=== PATIENT | female | born 1995 | race Two or more races ===

== ENCOUNTER 2017-12-06 09:51 | Emergency (ER) | payer OTHER ==
[2017-12-06] MEDS ORDERED: Albuterol/Ipratropium 3.0-0.5 MG/3 ML Neb Soln NEB ONE (10:08)
--- NOTE | 2017-12-06 10:14 | EDM.PDOC ---
ED HPI GENERAL MEDICAL PROBLEM - General Chief Complaint: Respiratory Problem Stated Complaint: COUGH AND FEVER Time Seen by Provider: 12/06/17 10:02 Source of Information: Reports: Patient History Limitations: Reports: No Limitations - History of Present Illness INITIAL COMMENTS - FREE TEXT/NARRATIVE: HISTORY AND PHYSICAL: History of present illness: Patient is a 22-year-old female. The [employer] head of mobile was used for our interview/physical exam. Patient presents to the emergency room today with complaints of body aches, fever, cough since last night. She states she has taken some [id number] medication which has not seemed to help. She denies any previous health problems such as asthma or problems. Reports when she coughs she has pain in her right posterior chest wall, and does make her nauseated when she gets into a coughing spell. She denies any recent injury or trauma. Has not received the [id number] influenza vaccine. No recent travel. Denies any chest pain or shortness of breath. Denies any dysuria, abdominal pain , nausea, vomiting or diarrhea/constipation. Denies any chance of as she uses the Depo-Provera injection every 3 months. Review of systems: As per history of present illness and below otherwise all systems reviewed and negative. Past medical history: As per history of present illness and as reviewed below otherwise noncontributory. Surgical history: As per history of present illness and as reviewed below otherwise noncontributory. Social history: No reported history of drug or alcohol abuse. Family history: As per history of present illness and as reviewed below otherwise noncontributory. Physical exam: Gen.: Well-developed and well-nourished 22-year-old female. Alert and oriented. Nontoxic appearing and in no acute distress. HEENT: Atraumatic, normocephalic, pupils reactive, negative for conjunctival pallor or scleral icterus, mucous membranes moist, throat clear, neck supple, nontender, trachea midline. Lungs: Clear to auscultation, breath sounds equal bilaterally, chest nontender. Dry cough noted. Heart: S1S2, regular rate and rhythm without overt murmurs Abdomen: Soft, nondistended, nontender. Negative for masses or hepatosplenomegaly. Negative for costovertebral tenderness. Pelvis: Stable nontender. Genitourinary: Deferred. Rectal: Deferred. Extremities: Atraumatic, negative for cords or calf pain. Neurovascular unremarkable. Neuro: Awake, alert, oriented. Cranial nerves II through XII unremarkable. Cerebellum unremarkable. Motor and sensory unremarkable throughout. Exam nonfocal. Patient reports that she feels somewhat better after receiving her DuoNeb treatment. Negative influenza. Her white count is 19.4 and chest x-ray shows a right middle lobe pneumonia. I did use the [employer] services to discuss her x-ray and lab findings. We'll give her her first dose of Levaquin here. A prescription for Levaquin 750 mg once daily 10 days, Medrol Dosepak take as directed, Phenergan with codeine elixir, no refill. These medications were reviewed and discussed. Instructed her to follow up with her primary care provider in the next 2-3 days. She voices understanding and is agreeable to plan of care. She denies any questions at this time. Diagnostics: CBC, CMP, Chest x-ray, influenza screening Therapeutics: DuoNeb Impression: Pneumonia Plan: 1. Please take your medications as directed. Do not use the Phenergan with codeine while driving or needing to be functioning with work or childcare. He may use [id number] cough medication during the day. 2. Please follow-up with your primary caregiver in the next 2-3 days. Return to the ED as needed and as we discussed. Definitive disposition and diagnosis as appropriate pending reevaluation and review of above. Duration: Day(s): Location: Reports: Chest - Related Data Allergies Allergy/AdvReac Type Severity Reaction Status Date / Time No Known Allergies Allergy Verified 12/06/17 10:03 Home Meds: Home Meds . [No Known Home Meds] 12/06/17 [History] ED ROS GENERAL - Review of Systems Review Of Systems: ROS reveals no pertinent complaints other than HPI. ED EXAM, GENERAL - Physical Exam Exam: See Below (See dictation) Course - Vital Signs Last Recorded V/S: Last Vital Signs Temp 97.1 F 12/06/17 10:04 Pulse 108 H 12/06/17 10:04 Resp 18 12/06/17 10:04 BP 95/59 L 12/06/17 10:04 Pulse Ox 96 12/06/17 10:04 - Orders/Labs/Meds Orders: Active Orders 24 hr Category Date Time Status RT Aerosol Therapy [RC] ASDIRECTED Care 12/06/17 10:08 Active Labs: Laboratory Tests 12/06/17 12/06/17 Range/Units 10:34 10:34 WBC 19.49 H (4.0-11.0) K/uL RBC 4.44 (4.30-5.90) M/uL Hgb 13.8 (12.0-16.0) g/dL Hct 38.8 (36.0-46.0) % MCV 87.4 (80.0-98.0) fL MCH 31.1 (27.0-32.0) pg MCHC 35.6 (31.0-37.0) g/dL RDW Std Deviation 42.1 (28.0-62.0) fl RDW Coeff of Lina 13 (11.0-15.0) % Plt Count 191 (150-400) K/uL MPV 10.40 (7.40-12.00) fL Neut % (Auto) 88.6 H (48.0-80.0) % Lymph % (Auto) 5.2 L (16.0-40.0) % [place]ell % (Auto) 6.0 (0.0-15.0) % Eos % (Auto) 0.1 (0.0-7.0) % Baso % (Auto) 0.1 (0.0-1.5) % Neut # (Auto) 17.3 H (1.4-5.7) K/uL Lymph # (Auto) 1.0 (0.6-2.4) K/uL Cabell # (Auto) 1.2 H (0.0-0.8) K/uL Eos # (Auto) 0.0 (0.0-0.7) K/uL Baso # (Auto) 0.0 (0.0-0.1) K/uL Nucleated RBC % 0.0 /100WBC Nucleated RBCs # 0 K/uL Sodium 137 (136-146) mmol/L Potassium 3.7 (3.5-5.1) mmol/L Chloride 108 (98-110) mmol/L Carbon Dioxide 19 L (21-31) mmol/L BUN 9 (6.0-23.0) mg/dL Creatinine 0.7 (0.6-1.5) mg/dL Est Cr Clr Drug Dosing TNP Estimated GFR (MDRD) > 60.0 ml/min Glucose 112 H (60-110) mg/dL Calcium 9.3 (8.8-10.8) mg/dL Total Bilirubin 1.0 (0.1-1.5) mg/dL AST 18 (5-40) IU/L ALT 20 (8-54) IU/L Alkaline Phosphatase 67 (40-150) Total Protein 7.2 (6.0-8.0) g/dL Albumin 4.2 (3.5-5.0) g/dL Globulin 3.0 (2.0-3.5) g/dL Albumin/Globulin Ratio 1.4 (1.3-2.8) Meds: Medications Discontinued Medications Generic Name Dose Route Start Last Admin Trade Name Freq PRN Reason Stop Dose Admin Albuterol/Ipratropium 3 ml 12/06/17 10:08 12/06/17 10:29 Duoneb 3.0-0.5 Mg/3 Ml NEB 12/06/17 10:09 3 ml ONETIME ONE Administration Levofloxacin 750 mg 12/06/17 11:11 Levaquin PO 12/06/17 11:12 ONETIME ONE Departure - Departure Time of Disposition: 11:18 Disposition: Home, Self-Care 01 Clinical Impression: Pneumonia Qualifiers: Pneumonia type: due to unspecified organism Laterality: right Lung location: middle lobe of lung Qualified Code(s): J18.1 - Lobar pneumonia, unspecified organism - Discharge Information Referrals: PCP,Unknown [Primary Care Provider] - Forms: ED Department Discharge Additional Instructions: My general discharge The following information is given to patients seen in the emergency department who are being discharged to home. This information is to outline your options for follow-up care. We provide all patients seen in our emergency department with a follow-up referral. The need for follow-up, as well as the timing and circumstances, are variable depending upon the specifics of your emergency department visit. If you don't have a primary care physician on staff, we will provide you with a referral. We always advise you to contact your personal physician following an emergency department visit to inform them of the circumstance of the visit and for follow-up with them and/or the need for any referrals to a consulting specialist. The emergency department will also refer you to a specialist when appropriate. This referral assures that you have the opportunity for follow-up care with a specialist. All of these measure are taken in an effort to provide you with optimal care, which includes your follow-up. Under all circumstances we always encourage you to contact your private physician who remains a resource for coordinating your care. When calling for follow-up care, please make the office aware that this follow-up is from your recent emergency room visit. If for any reason you are refused follow-up, please contact the [facility] Emergency Department at and asked to speak to the emergency department charge nurse. [facility] [address] [place] [id number] 1. Please take your medications as directed. Make sure you take all of your antibiotics (10 days). Do not use the Phenergan with codeine while driving or needing to be functioning with work or childcare. You may use [id number] cough medication during the day. 2. Please follow-up with your primary caregiver in the next 2-3 days. Return to the ED as needed and as we discussed. - My Orders Last 24 Hours: My Active Orders 12/06/17 10:08 RT Aerosol Therapy [RC] ASDIRECTED - Assessment/Plan Last 24 Hours: My Active Orders 12/06/17 10:08 RT Aerosol Therapy [RC] ASDIRECTED
--- NOTE | 2017-12-06 10:31 | CR ---
EXAMINATION: Two-view chest (PA and Lateral views). HISTORY: Shortness of breath. FINDINGS: The trachea is midline. The cardiomediastinal silhouette is within normal limits. Mild consolidation noted within the right middle lobe. No pleural effusion or pneumothorax. Tiny calcified granuloma wit hin the left upper lobe. Osseous structures appear unremarkable. IMPRESSION: Right middle lobe pneumonia.
[2017-12-06 11:04] LABS: CHLORIDE,CL 108 mmol/L (98-110); SODIUM,NA 137 mmol/L (136-146)
[2017-12-06] MEDS ORDERED: Levofloxacin 250 MG Tab PO ONE (11:11)
== END 2017-12-06 11:40 | disposition home or self-care (01) ==
LOC: MW.ED 09:51
DX: J18.9 Pneumonia, unspecified organism (principal)
CPT/HCPCS: 36415; 71046; 80053; 85025; 87804; 94640; 99284; A9270

== ENCOUNTER 2018-04-03 17:11 | Emergency (ER) | payer OTHER ==
--- NOTE | 2018-04-03 17:39 | EDM.PDOC ---
ED HPI GENERAL MEDICAL PROBLEM - General Chief Complaint: Respiratory Problem Stated Complaint: SORE THROAT/COUGH/CHEST PAIN Time Seen by Provider: 04/03/18 17:13 Source of Information: Reports: Patient History Limitations: Reports: No Limitations - History of Present Illness INITIAL COMMENTS - FREE TEXT/NARRATIVE: Presents reporting a three-day history of cough and cold symptoms along with sore throat ear pressure and her chest hurts when she coughs. lungs Pain Score (Numeric/FACES): 6 - Related Data Allergies Allergy/AdvReac Type Severity Reaction Status Date / Time No Known Allergies Allergy Verified 04/03/18 17:27 Home Meds: Home Meds predniSONE [Prednisone] 2 tab PO DAILY #10 tablet 04/03/18 [Rx] Past Medical History - Past Health History Medical/Surgical History: Denies Medical/Surgical History - Infectious Disease History Infectious Disease History: Reports: Chicken Pox Social & Family History - Family History Family Medical History: Noncontributory - Caffeine Use Caffeine Use: Reports: Coffee ED ROS GENERAL - Review of Systems Review Of Systems: ROS reveals no pertinent complaints other than HPI. ED EXAM, GENERAL - Physical Exam Exam: See Below Exam Limited By: Language Barrier (Limited Chinese) General Appearance: Alert, No Apparent Distress Ears: Normal External Exam, Normal TMs Nose: Normal Inspection Throat/Mouth: Normal Inspection Head: Normocephalic Neck: Normal Inspection. No: Lymphadenopathy (L), Lymphadenopathy (R) Respiratory/Chest: No Respiratory Distress, Lungs Clear, Normal Breath Sounds Cardiovascular: Regular Rate, Rhythm, No Murmur GI/Abdominal: Soft Neurological: Alert, Oriented, Normal Cognition Psychiatric: Normal Affect, Normal Mood Skin Exam: Warm, Dry, Intact, Normal Color, No Rash Lymphatic: No Adenopathy Course - Vital Signs Last Recorded V/S: Last Vital Signs Temp 36.3 C 04/03/18 17:27 Pulse 79 04/03/18 17:27 Resp 20 04/03/18 17:27 BP 117/58 L 04/03/18 17:27 Pulse Ox 97 04/03/18 17:27 Departure - Departure Time of Disposition: 17:38 Disposition: Home, Self-Care 01 Clinical Impression: Bronchitis - Discharge Information Referrals: PCP,None [Primary Care Provider] - [facility] [Outside] [facility] [Outside] Additional Instructions: 1. Take your prednisone 2 tabs once daily. 2. Cough syrup 2 teaspoons every [address] after taking. Best before bed. 3. Stop smoking. 4. Drink plenty of fluids and rest. 5. Follow up in primary care.
== END 2018-04-03 18:01 | disposition home or self-care (01) ==
LOC: MW.ED 17:11
DX: J40 Bronchitis, not specified as acute or chronic (principal)
CPT/HCPCS: 99282; 99283

== ENCOUNTER 2018-08-05 10:18 | Emergency (ER) | payer OTHER ==
--- NOTE | 2018-08-05 10:25 | EDM.PDOC ---
ED HPI GENERAL MEDICAL PROBLEM - General Stated Complaint: COUGH, CONGESTION Time Seen by Provider: 08/05/18 10:24 Source of Information: Reports: Patient History Limitations: Reports: No Limitations - History of Present Illness INITIAL COMMENTS - FREE TEXT/NARRATIVE: HISTORY AND PHYSICAL: History of present illness: Patient is a 23-year-old female who presents to the emergency room with her with concerns of sinus pressure/pain, sore throat and cough. She states she has had these symptoms for the last 4 days and has not improved with over- the-counter products. He has had subjective fevers. Denies any chest pain, shortness of breath, abdominal pain, nausea, vomiting, dysuria, diarrhea or constipation. Review of systems: As per history of present illness and below otherwise all systems reviewed and negative. Past medical history: As per history of present illness and as reviewed below otherwise noncontributory. Surgical history: As per history of present illness and as reviewed below otherwise noncontributory. Social history: No reported history of drug or alcohol abuse. Family history: As per history of present illness and as reviewed below otherwise noncontributory. Physical exam: General: Developed and well-nourished 23-year-old female. Alert and oriented. Nontoxic appearing and in no acute distress. HEENT: Atraumatic, normocephalic, pupils equal and reactive bilaterally, negative for conjunctival pallor or scleral icterus, mucous membranes moist, throat clear, neck supple, nontender, trachea midline. Frontal sinus pain with palpation bilatearlly. TM normal bilaterally. No drooling or trismus noted. No meningeal signs Lungs: Slightly diminsihed breath sounds to bilateral bases, breath sounds equal bilaterally, chest nontender. Dry non-productive cough. Breathes easy and even Heart: S1S2, regular rate and rhythm without overt murmur Abdomen: Soft, nondistended, nontender. Negative for masses or hepatosplenomegaly. Negative for costovertebral tenderness. Pelvis: Stable nontender. Genitourinary: Deferred. Rectal: Deferred. Skin: Intact, warm, dry. No lesions or rashes noted. Extremities: Atraumatic, negative for cords or calf pain. Neurovascular unremarkable. Neuro: Awake, alert, oriented. Cranial nerves II through XII unremarkable. Cerebellum unremarkable. Motor and sensory unremarkable throughout. Exam nonfocal. Notes: We will give the patient Augmentin for 10 days. Patient states that she uses current pharmacy that is not open on Monday. She is requesting that we give her her first dose while here in the emergency room. I did try to explain the albuterol inhaler which it appears she does need education from our RT. She denies any further questions or concerns at this time. Diagnostics: None Therapeutics: Augmentin, Albuterol Prescription: Augmentin Albuterol Inhaler Impression: Sinusitis Cough Plan: 1. Please take the medication as directed. 2. You may use the inhaler 1-2 puffs every 4-6 hours as needed 3. Tylenol as needed for pain. 4. Please follow-up with your primary care provider in the next 1-2 days. Return to the ED as needed and as discussed. Definitive disposition and diagnosis as appropriate pending reevaluation and review of above. Chest Pain Score (Numeric/FACES): 9 - Related Data Allergies Allergy/AdvReac Type Severity Reaction Status Date / Time No Known Allergies Allergy Verified 07/22/18 13:14 Home Meds: Home Meds . [No Known Home Meds] 07/22/18 [History] Past Medical History - Past Health History Medical/Surgical History: Denies Medical/Surgical History - Infectious Disease History Infectious Disease History: Reports: None Social & Family History - Family History Family Medical History: Noncontributory - Caffeine Use Caffeine Use: Reports: Coffee ED ROS GENERAL - Review of Systems Review Of Systems: ROS reveals no pertinent complaints other than HPI. ED EXAM, GENERAL - Physical Exam Exam: See Below (See dictation) Course - Vital Signs Last Recorded V/S: Last Vital Signs Temp 98.1 F 08/05/18 10:27 Pulse 97 08/05/18 10:27 Resp 18 08/05/18 10:27 BP 112/66 08/05/18 10:27 Pulse Ox 97 08/05/18 10:27 - Orders/Labs/Meds Orders: Active Orders 24 hr Category Date Time Status RT Post Treatment Assessment [RC] Click to Edit Care 08/05/18 10:40 Ordered RT Pre-Treatment Assessment [RC] Click to Edit Care 08/05/18 10:40 Ordered Meds: Medications Discontinued Medications Generic Name Dose Route Start Last Admin Trade Name Freq PRN Reason Stop Dose Admin Albuterol 1 gm 08/05/18 10:39 Proventil Hfa INH 08/05/18 10:40 ONETIME ONE Albuterol 1 gm 08/05/18 11:00 08/05/18 10:57 Ventolin Hfa INH 08/05/18 11:01 2 inhaler ONETIME ONE Administration Amoxicillin/Clavulanate Potassium 2 tab 08/05/18 10:39 08/05/18 10:56 Augmentin 875 Mg/125 Mg PO 08/05/18 10:40 2 tab ONETIME ONE Administration Departure - Departure Time of Disposition: 10:44 Disposition: Home, Self-Care 01 Clinical Impression: Cough Sinusitis Qualifiers: Sinusitis location: frontal Chronicity: acute Recurrence: non-recurrent Qualified Code(s): J01.10 - Acute frontal sinusitis, unspecified - Discharge Information Instructions: Sinusitis, Adult, N[place]-be-Cecd, Cough, Adult Referrals: PCP,None [Primary Care Provider] - Forms: ED Department Discharge Additional Instructions: The following information is given to patients seen in the emergency department who are being discharged to home. This information is to outline your options for follow-up care. We provide all patients seen in our emergency department with a follow-up referral. The need for follow-up, as well as the timing and circumstances, are variable depending upon the specifics of your emergency department visit. If you don't have a primary care physician on staff, we will provide you with a referral. We always advise you to contact your personal physician following an emergency department visit to inform them of the circumstance of the visit and for follow-up with them and/or the need for any referrals to a consulting specialist. The emergency department will also refer you to a specialist when appropriate. This referral assures that you have the opportunity for follow-up care with a specialist. All of these measure are taken in an effort to provide you with optimal care, which includes your follow-up. Under all circumstances we always encourage you to contact your private physician who remains a resource for coordinating your care. When calling for follow-up care, please make the office aware that this follow-up is from your recent emergency room visit. If for any reason you are refused follow-up, please contact the [facility] Emergency Department at and asked to speak to the emergency department charge nurse. [facility] [address] [place] [id number] 1. Please take the medication as directed. 2. You may use the inhaler 1-2 puffs every 4-6 hours as needed 3. Tylenol as needed for pain. 4. Please follow-up with your primary care provider in the next 1-2 days. Return to the ED as needed and as discussed. - My Orders Last 24 Hours: My Active Orders 08/05/18 10:40 RT Post Treatment Assessment [RC] Click to Edit RT Pre-Treatment Assessment [RC] Click to Edit - Assessment/Plan Last 24 Hours: My Active Orders 08/05/18 10:40 RT Post Treatment Assessment [RC] Click to Edit RT Pre-Treatment Assessment [RC] Click to Edit
[2018-08-05] MEDS ORDERED: Albuterol 6.7 GM Inhaler INH ONE (10:39)
[2018-08-05] MEDS ORDERED: Amoxicillin/Clavulanate K 875-125 MG Tab PO ONE (10:39)
[2018-08-05] MEDS ORDERED: Albuterol 8 GM Inhaler INH ONE (11:00)
== END 2018-08-05 11:00 | disposition home or self-care (01) ==
LOC: MW.ED 10:18
DX: J01.10 Acute frontal sinusitis, unspecified (principal); R05 Cough
CPT/HCPCS: 99283; A9270

== ENCOUNTER 2019-02-21 05:21 | Inpatient (IN) | payer OTHER ==
[~2019-02-21 05:21] MED LIST: Citric Acid/Sodium Citrate Solution 30 ML Cup PO ONE; Oxytocin/0.9 % Sodium Chloride 30 UNIT/500 ML BAG IV SCH; Sodium Chloride 0.9% 10 ML SDV IV PRN; Sodium Chloride 0.9% 10 ML Syringe FLUSH PRN; Sodium Chloride 0.9% 2.5 ML Syringe FLUSH PRN
[2019-02-21] MEDS: Lactated Ringers 1,000 ML IV SCH ×2 (06:10→07:26)
[2019-02-21] MEDS ORDERED: Morphine PF 10 MG/10 ML SDV ONE (07:18)
[2019-02-21] MEDS ORDERED: ePHEDrine 50 MG/ML SDV ONE (07:18)
[2019-02-21] MEDS ORDERED: Phenylephrine 1% 10 MG/ML SDV ONE (07:18)
[2019-02-21] MEDS ORDERED: Ondansetron 4 MG/2 ML SDV ONE (07:18)
[2019-02-21] MEDS ORDERED: Oxytocin 10 Units/1 ML SDV ONE (07:18)
[2019-02-21] MEDS ORDERED: Ketorolac 30 MG/ML SDV ONE (07:19)
[2019-02-21] MEDS ORDERED: Oxytocin/0.9 % Sodium Chloride 30 UNIT/500 ML BAG ONE (07:28)
--- NOTE | 2019-02-21 07:28 | PCM.PREANE ---
Preanesthetic Assessment - Anesthesia/Transfusion/Family Hx Anesthesia History: Prior Anesthesia Without Reaction Family History of Anesthesia Reaction: No Transfusion History: No Prior Transfusion(s) - Review of Systems General: No Symptoms Pulmonary: No Symptoms Cardiovascular: No Symptoms Gastrointestinal: No Symptoms Neurological: No Symptoms Other: Reports: None - Physical Assessment NPO Status Date: 02/20/19 Height: 5 ft 5 in Weight: 84.368 kg ASA Class: 2 Mental Status: Alert & Oriented x3 Airway Class: Mallampati = 2 Dentition: Reports: Normal Dentition ROM/Head Extension: Full Lungs: Clear to Auscultation, Normal Respiratory Effort Cardiovascular: Regular Rate, Regular Rhythm - Lab Values: Laboratory Last Values WBC 11.41 K/uL (4.0-11.0) H 02/21/19 06:22 RBC 3.85 M/uL (4.30-5.90) L 02/21/19 06:22 Hgb 10.7 g/dL (12.0-16.0) L 02/21/19 06:22 Hct 32.3 % (36.0-46.0) L 02/21/19 06:22 MCV 83.9 fL (80.0-98.0) 02/21/19 06:22 MCH 27.8 pg (27.0-32.0) 02/21/19 06:22 MCHC 33.1 g/dL (31.0-37.0) 02/21/19 06:22 RDW Std Deviation 43.6 fl (28.0-62.0) 02/21/19 06:22 RDW Coeff of Lina 14 % (11.0-15.0) 02/21/19 06:22 Plt Count 238 K/uL (150-400) 02/21/19 06:22 MPV 10.40 fL (7.40-12.00) 02/21/19 06:22 Nucleated RBC % 0.0 /100WBC 02/21/19 06:22 Nucleated RBCs # 0 K/uL 02/21/19 06:22 - Allergies Allergies/Adverse Reactions: Allergies Allergy/AdvReac Type Severity Reaction Status Date / Time No Known Allergies Allergy Verified 02/18/19 12:53 - Blood Blood Available: No - Anesthesia Plan Pre-Op Medication Ordered: None - Acknowledgements Anesthesia Type Planned: Spinal Pt an Appropriate Candidate for the Planned Anesthesia: Yes Alternatives and Risks of Anesthesia Discussed w Pt/Guardian: Yes Pt/Guardian Understands and Agrees with Anesthesia Plan: Yes PreAnesthesia Questionnaire - Past Health History Medical/Surgical History: Denies Medical/Surgical History Cardiovascular History: Reports: None Respiratory History: Reports: None Gastrointestinal History: Reports: GERD Genitourinary History: Reports: None 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: Musculoskeletal History: Reports: None Neurological History: Reports: None Psychiatric History: Reports: Depression Other Psychiatric History: post depression Endocrine/Metabolic History: Reports: None Hematologic History: Reports: None Immunologic History: Reports: None Oncologic (Cancer) History: Reports: None Dermatologic History: Reports: None - Infectious Disease History Infectious Disease History: Reports: None - Past Surgical History Head Surgeries/Procedures: Reports: None Cardiovascular Surgical History: Reports: None Respiratory Surgical History: Reports: None GI Surgical History: Reports: None Female Surgical History: Reports: Section Endocrine Surgical History: Reports: None Neurological Surgical History: Reports: None Musculoskeletal Surgical History: Reports: None Oncologic Surgical History: Reports: None Dermatological Surgical History: Reports: None - SUBSTANCE USE Smoking Status *Q: Never Smoker Second Hand Smoke Exposure: No Recreational Drug Use History: No - HOME MEDS Home Medications: Home Meds Famotidine [Acid Customer Advisor] 1 tab PO BID 02/18/19 [History] PNV95/Ferrous Fumarate/FA [ Vitamin Tablet] 1 tab PO DAILY 02/18/19 [ History] - CURRENT (IN HOUSE) MEDS Current Meds: Current Medications Lactated Ringer's (Ringers, Lactated) 1,000 mls @ 500 mls/hr IV BOLUS DEAN Last Admin: 02/21/19 07:26 Dose: 500 mls/hr Oxytocin/Sodium Chloride (Oxytocin 30 Unit/500 Ml-Ns) 30 unit in 500 mls @ 250 mls/hr IV TITRATE DEAN Sodium Chloride (Saline Flush) 10 ml FLUSH ASDIRECTED PRN PRN Reason: Keep Vein Open Sodium Chloride (Saline Flush) 2.5 ml FLUSH ASDIRECTED PRN PRN Reason: Keep Vein Open Sodium Chloride (Normal Saline) 10 ml IV ASDIRECTED PRN PRN Reason: IV Use Discontinued Medications Citric Acid/Sodium Citrate (Bicitra Solution) 30 ml PO ONETIME ONE Stop: 02/20/19 10:42 Ephedrine Sulfate (Ephedrine Sulfate) Confirm Administered Dose 50 mg .ROUTE .STK-MED ONE Stop: 02/21/19 07:19 Ketorolac Tromethamine (Toradol) Confirm Administered Dose 30 mg .ROUTE .STK- MED ONE Stop: 02/21/19 07:20 Morphine Sulfate (Duramorph Pf) Confirm Administered Dose 10 mg .ROUTE .STK-MED ONE Stop: 02/21/19 07:19 Ondansetron HCl (Zofran) Confirm Administered Dose 4 mg .ROUTE .STK-MED ONE Stop: 02/21/19 07:19 Oxytocin (Pitocin) Confirm Administered Dose 20 unit .ROUTE .STK-MED ONE Stop: 02/21/19 07:19 Phenylephrine HCl (Go-Synephrine) Confirm Administered Dose 10 mg .ROUTE .STK- MED ONE Stop: 02/21/19 07:19
[2019-02-21] MEDS ORDERED: Octyl 2-Cyanoacrylate 1 Tube ONE (07:30)
[2019-02-21] MEDS ORDERED: ceFAZolin/Dextrose,Iso-Osmotic 2 GM/50 ML Duplex Bag IV ONE (08:02)
[2019-02-21] MEDS ORDERED: Ibuprofen 800 MG Tab PO PRN (08:51)
[2019-02-21] MEDS ORDERED: Ondansetron 4 MG/2 ML SDV IVPUSH PRN (08:51)
[2019-02-21] MEDS ORDERED: diphenhydrAMINE 50 MG/ML SDV IVPUSH PRN (08:51)
[2019-02-21] MEDS ORDERED: Bisacodyl 10 MG Supp RECTAL PRN (08:51)
[2019-02-21] MEDS ORDERED: Acetaminophen/oxyCODONE 325-5 MG Tab PO PRN ×2 (08:51→09:13)
[2019-02-21] MEDS ORDERED: Lanolin 100% Cream 7 GM Tube TOP PRN (08:51)
--- NOTE | 2019-02-21 08:54 | PCM.LDHP ---
L&D History of Present Illness - General Date of Service: 02/21/19 Admit Problem/Dx: Patient Status Order with Admit Dx/Problem 02/21/19 00:01 Patient Status [ADT] Routine 02/21/19 08:51 Patient Status [ADT] Routine Admission Diagnosis/Problem Admission Diagnosis/Problem Source of Information: Patient History Limitations: Reports: No Limitations - History of Present Illness Improves with: Reports: None Worsens with: Reports: None Associated Symptoms: Reports: N - Related Data Allergies/Adverse Reactions: Allergies Allergy/AdvReac Type Severity Reaction Status Date / Time No Known Allergies Allergy Verified 02/18/19 12:53 Home Medications: Home Meds Famotidine [Acid Social Services Designee] 1 tab PO BID 02/18/19 [History] PNV95/Ferrous Fumarate/FA [ Vitamin Tablet] 1 tab PO DAILY 02/18/19 [ History] Past Medical History - Past Health History Medical/Surgical History: Denies Medical/Surgical History Cardiovascular History: Reports: None Respiratory History: Reports: None Gastrointestinal History: Reports: GERD Genitourinary History: Reports: None [employer] History: Reports: Musculoskeletal History: Reports: None Neurological History: Reports: None Psychiatric History: Reports: Depression Other Psychiatric History: post depression Endocrine/Metabolic History: Reports: None Hematologic History: Reports: None Immunologic History: Reports: None Oncologic (Cancer) History: Reports: None Dermatologic History: Reports: None - Infectious Disease History Infectious Disease History: Reports: None - Past Surgical History Head Surgeries/Procedures: Reports: None Cardiovascular Surgical History: Reports: None Respiratory Surgical History: Reports: None GI Surgical History: Reports: None Female Surgical History: Reports: Section Endocrine Surgical History: Reports: None Neurological Surgical History: Reports: None Musculoskeletal Surgical History: Reports: None Oncologic Surgical History: Reports: None Dermatological Surgical History: Reports: None Social & Family History - Family History Family Medical History: Noncontributory - Tobacco Use Smoking Status *Q: Never Smoker Used Tobacco, but Quit: Yes Month/Year Tobacco Last Used: quit 2 years ago Second Hand Smoke Exposure: No - Caffeine Use Caffeine Use: Reports: Coffee - Recreational Drug Use Recreational Drug Use: No H&P Review of Systems - Review of Systems: Review Of Systems: See Below General: Reports: No Symptoms HEENT: Reports: No Symptoms Pulmonary: Reports: No Symptoms Cardiovascular: Reports: No Symptoms Gastrointestinal: Reports: No Symptoms Genitourinary: Reports: No Symptoms Musculoskeletal: Reports: No Symptoms Skin: Reports: No Symptoms Psychiatric: Reports: No Symptoms Neurological: Reports: No Symptoms Hematologic/Lymphatic: Reports: No Symptoms Immunologic: Reports: No Symptoms L&D Exam - Exam Exam: See Below - Vital Signs Weight: 84.368 kg - OB Specific Fundal Height In cm: 38 Contraction Intensity: Mild Movement: Active Heart Tones: Present Presentation: Vertex - Chaparro Score Chaparro Score Cervix Position: Midposition Chaparro Score Consistency: Soft Chaparro Score Effacement: 51-70% Chaparro Score Dilation: 1-2 cm Chaparro Score 's Station: -2 Chaparro Score Total: 7 - Exam General: Alert, Oriented HEENT: PERRLA, Conjunctiva Clear, EACs Clear, EOMI, Hearing Intact, Mucosa Moist & [place], Nares Patent, Normal Nasal Septum, Posterior Pharynx Clear, TMs Clear Neck: Supple, Trachea Midline Lungs: Clear to Auscultation, Normal Respiratory Effort Cardiovascular: Regular Rate, Regular Rhythm GI/Abdominal Exam: Normal Bowel Sounds, Soft, Non-Tender, No Organomegaly, No Distention, No Abnormal Bruit, No Mass, Pelvis Stable Rectal Exam: Normal Exam, Normal Rectal Tone Genitourinary: Normal external exam, Normal bimanual exam, Normal speculum exam Back Exam: Normal Inspection, Full Range of Motion Extremities: Normal Inspection, Normal Range of Motion, Non-Tender, No Pedal Edema, Normal Capillary Refill Skin: Warm, Dry, Intact Neurological: Cranial Nerves Intact, Reflexes Equal Bilateral Psychiatric: Alert, Normal Affect, Normal Mood - Patient Data Lab Results Last 24 hrs: Laboratory Results - last 24 hr 02/21/19 02/21/19 Range/Units 06:22 06:22 WBC 11.41 H (4.0-11.0) K/uL RBC 3.85 L (4.30-5.90) M/uL Hgb 10.7 L (12.0-16.0) g/dL Hct 32.3 L (36.0-46.0) % MCV 83.9 (80.0-98.0) fL MCH 27.8 (27.0-32.0) pg MCHC 33.1 (31.0-37.0) g/dL RDW Std Deviation 43.6 (28.0-62.0) fl RDW Coeff of Lina 14 (11.0-15.0) % Plt Count 238 (150-400) K/uL MPV 10.40 (7.40-12.00) fL Nucleated RBC % 0.0 /100WBC Nucleated RBCs # 0 K/uL Blood Type O POSITIVE Antibody Screen NEGATIVE Result Diagrams: 02/21/19 06:22 Problem List Initiated/Reviewed/Updated: Yes Orders Last 24hrs: Active Orders 24 hr Category Date Time Status Patient Status [ADT] Routine ADT 02/21/19 08:51 Ordered Ambulate [RC] PER UNIT ROUTINE Care 02/21/19 08:51 Ordered Antiembolic Devices [RC] PER UNIT ROUTINE Care 02/21/19 08:52 Ordered Communication Order [RC] PER UNIT ROUTINE Care 02/21/19 08:51 Ordered Communication Order [RC] PER UNIT ROUTINE Care 02/21/19 08:51 Ordered Communication Order [RC] Per Unit Routine Care 02/21/19 08:51 Ordered Non Stress Test [RC] PER UNIT ROUTINE Care 02/20/19 10:41 Active May Shower [RC] ASDIRECTED Care 02/21/19 08:51 Ordered Procedure Site Prep Instruct [RC] ASDIRECTED Care 02/20/19 10:41 Active RT Incentive Spirometry [RC] Q2HWA Care 02/21/19 08:51 Ordered Up ad [place] [RC] ASDIRECTED Care 02/20/19 10:41 Active Vital Signs [RC] PER UNIT ROUTINE Care 02/20/19 10:41 Active Vital Signs [RC] PER UNIT ROUTINE Care 02/21/19 08:51 Ordered HEMOGLOBIN/HEMATOCRIT,HH [HEME] Timed Lab 02/22/19 05:11 Ordered Acetaminophen/oxyCODONE [Percocet 325-5 MG] Med 02/21/19 08:51 Ordered 1 tab PO Q4H PRN Acetaminophen/oxyCODONE [Percocet 325-5 MG] Med 02/21/19 08:51 Ordered 2 tab PO Q4H PRN Bisacodyl [Dulcolax] Med 02/21/19 08:51 Ordered 10 mg RECTAL ONETIME PRN Docusate Sodium [Colace] Med 02/21/19 09:00 Ordered 100 mg PO BID Ibuprofen [Motrin] Med 02/21/19 08:51 Ordered 800 mg PO Q8H PRN Ketorolac [Toradol] Med 02/21/19 09:00 Ordered 30 mg IVPUSH Q6H Lactated Ringers @ 125 MLS/HR(1000ml) Med 02/21/19 09:00 Ordered Lactated Ringers [Ringers, Lactated] 1,000 ml IV ASDIRECTED Lactated Ringers [Ringers, Lactated] 1,000 ml Med 02/20/19 10:45 Active IV BOLUS Lanolin [Lansinoh HPA] Med 02/21/19 08:51 Ordered See Dose Instructions TOP ASDIRECTED PRN Ondansetron [Zofran] Med 02/21/19 08:51 Ordered 4 mg IVPUSH Q4H PRN Oxytocin/0.9 % Sodium Chloride [Oxytocin 30 Unit/500 ML Med 02/20/19 10:45 Active -NS] 30 unit in 500 ml IV TITRATE Sodium Chloride 0.9% [Normal Saline] Med 02/20/19 10:41 Active 10 ml IV ASDIRECTED PRN Sodium Chloride 0.9% [Saline Flush] Med 02/20/19 10:41 Active 10 ml FLUSH ASDIRECTED PRN Sodium Chloride 0.9% [Saline Flush] Med 02/20/19 10:41 Active 2.5 ml FLUSH ASDIRECTED PRN diphenhydrAMINE [Benadryl] Med 02/21/19 08:51 Ordered 25 mg IVPUSH Q6H PRN Assess Lochia [WOMSER] Per Unit Routine Ot 02/21/19 08:51 Ordered Assess Uterine Involution [WOMSER] Per Unit Routine Ot 02/21/19 08:51 Ordered Breast Pump [WOMSER] Per Unit Routine Oth 02/21/19 08:51 Ordered Peripheral IV Discontinue [OM.PC] Routine Ot 02/21/19 08:51 Ordered Peripheral IV Insertion Adult [OM.PC] Routine Ot 02/20/19 10:41 Ordered Schedule Procedure [COMM] Per Unit Routine Ot 02/20/19 10:41 Ordered Sequential Compression Device [OM.PC] Per Unit Routine Ot 02/21/19 08:51 Ordered Resuscitation Status Routine Resus Stat 02/20/19 10:41 Ordered Medication Orders Lactated Ringer's (Ringers, Lactated) 1,000 mls @ 500 mls/hr IV BOLUS DEAN Last Admin: 02/21/19 07:26 Dose: 500 mls/hr Infusion: 02/21/19 07:26 Dose: 500 mls/hr Admin: 02/21/19 06:10 Dose: 500 mls/hr Oxytocin/Sodium Chloride (Oxytocin 30 Unit/500 Ml-Ns) 30 unit in 500 mls @ 250 mls/hr IV TITRATE DEAN Sodium Chloride (Saline Flush) 10 ml FLUSH ASDIRECTED PRN PRN Reason: Keep Vein Open Sodium Chloride (Saline Flush) 2.5 ml FLUSH ASDIRECTED PRN PRN Reason: Keep Vein Open Sodium Chloride (Normal Saline) 10 ml IV ASDIRECTED PRN PRN Reason: IV Use Assessment/Plan Comment:: Admitted foe elective repeat C/section.
--- NOTE | 2019-02-21 08:55 | PCM.OPNOTE ---
- General Post-Op/Procedure Note Date of Surgery/Procedure: 02/21/19 Operative Procedure(s): Repeat C/section. Pre Op Diagnosis: [id number] previous C/section. Post-Op Diagnosis: Same Anesthesia Technique: Spinal Primary Surgeon: Nicola JERONIMOL in mLs: 600 Complications: None Condition: Good
[2019-02-21] MEDS ORDERED: Lactated Ringers 1,000 ML IV SCH (09:00)
[2019-02-21] MEDS ORDERED: Naloxone 0.4 MG/ML Syringe IVPUSH PRN (09:13)
[2019-02-21] MEDS ORDERED: Nalbuphine 10 MG/1 ML Vial IVPUSH PRN (09:13)
[2019-02-21] MEDS ORDERED: Phenylephrine/Normal Saline 100 MCG/ML 10 ML Syringe ONE (09:40)
--- NOTE | 2019-02-21 10:00 | PCM.POSTAN ---
POST ANESTHESIA ASSESSMENT - MENTAL STATUS Mental Status: Alert, Oriented - RESPIRATORY Respiratory Status: Respiratory Rate WNL, Airway Patent, O2 Saturation Stable - CARDIOVASCULAR CV Status: Pulse Rate WNL, Blood Pressure Stable - GASTROINTESTINAL GI Status: No Symptoms - PAIN Pain Score: 0 (spinal still quite high - t8) - POST OP HYDRATION Hydration Status: Adequate & Stable - OBSERVATIONS Free Text/Narrative:: Pt's BPs had been low - not notified by PACU until approx 0930 and arrive to BP' s in the 90's/40's with past BP's lower. Pt's uterus is firm with minimal lochia and -1 at umbilicus. Two doses of phenylepherine given and now pt's bp is 90's/59. Pt has never been symptomatic. They did have pt laying flat - repositioned pt to HOB 30 degrees to allow spinal to wear off quicker. Pt has no complaints at this time and nurse knows to call if bp's continue to decline or large amount of bleeding occurs.
[2019-02-21] MEDS: Docusate Sodium 100 MG Cap PO SCH ×2 (11:40→21:33)
[2019-02-21] MEDS: Ketorolac 30 MG/ML SDV IVPUSH SCH ×3 (11:40→21:33)
--- NOTE | 2019-02-21 14:44 | OR ---
SURGEON: Nicola Munoz MD DATE OF PROCEDURE: POSTOPERATIVE DIAGNOSES: Intrauterine at 39+ weeks, previous section. POSTOPERATIVE DIAGNOSES: Intrauterine at 39+ weeks, previous section. OPERATION PERFORMED: Repeat low-transverse section. EQUIPMENT PLANNER: OR tech. ANESTHESIA: Spinal, Jimena Hassan. ESTIMATED BLOOD LOSS: 600 mL. COMPLICATIONS: None. FINDING: Female fetus. score reported to be 8 and 9. The weight not available at this time. Normal uterus, tubes, and ovaries. INDICATION: This patient is 23. She had previous section in [place]. Record is not available, however, according to the patient, she went to labor and dilated to 5 cm and did not progress, so most likely either due to failure to progress or CPD. PROCEDURE IN DETAIL: The patient was brought to the OR, properly identified. The patient with a Briggs catheter and adequate level of spinal anesthesia. The patient was prepped and draped in sterile fashion as usual. After taking time-out and identifying the patient again, a low-transverse Pfannenstiel skin incision done. Bigg's fascia and rectus fascia were opened in direction of the incision. The 2 recti muscles were and peritoneal cavity was entered. Bladder flap was raised in the usual manner pushing the bladder away from the lower uterine segment. Low transverse uterine incision then was done and extended manually with hand. Fetus was in a vertex position, delivered without any problem. Cried immediately. score reported to be 8 and 9. Amniotic fluid was clear. The placenta delivered spontaneous, complete, and intact and then repair of the lower uterine segment was done with 2-0 Vicryl continuous interlocking in 2 layers. Reperitonealization done with 3-0 Vicryl continuous and then the peritoneal cavity evacuated completely from all blood clot, closed with 3-0 Vicryl continuous, and the rectus fascia was closed with #1 PDS single strand continuous. Bigg's fascia with 3-0 Vicryl continuous. The skin closed with skin clips, Insorb, and Dermabond. Instrument and sponge count was correct. The patient tolerated the procedure well, went to recovery room in stable general condition. RUBEN / MIGDALIA /[id number]
[2019-02-22] MEDS: Ketorolac 30 MG/ML SDV IVPUSH SCH ×2 (03:07→09:35)
[2019-02-22] MEDS: Docusate Sodium 100 MG Cap PO SCH (08:35)
--- NOTE | 2019-02-22 08:37 | PCM.PNPP ---
- General Info Date of Service: 02/22/19 Functional Status: Reports: Pain Controlled - Review of Systems General: Reports: No Symptoms HEENT: Reports: No Symptoms Pulmonary: Reports: No Symptoms Cardiovascular: Reports: No Symptoms Gastrointestinal: Reports: No Symptoms Genitourinary: Reports: No Symptoms Musculoskeletal: Reports: No Symptoms Skin: Reports: No Symptoms Neurological: Reports: No Symptoms Psychiatric: Reports: No Symptoms - General Info Date of Service: 02/22/19 - Patient Data Vital Signs - Most Recent: Last Vital Signs Temp 36.6 C 02/22/19 07:25 Pulse 73 02/22/19 07:25 Resp 17 02/22/19 07:25 BP 92/50 L 02/22/19 07:25 Pulse Ox 97 02/22/19 07:25 Weight - Most Recent: 84.368 kg I&O - Last 24 Hours: Intake & Output 02/21/19 02/22/19 02/22/19 22:59 06:59 14:59 Intake Total 1145 Output Total 850 Balance 295 Lab Results - Last 24 Hours: Laboratory Results - last 24 hr 02/22/19 Range/Units 04:50 Hgb 9.4 L (12.0-16.0) g/dL Hct 28.3 L (36.0-46.0) % Med Orders - Current: Current Medications Bisacodyl (Dulcolax) 10 mg RECTAL ONETIME PRN PRN Reason: Constipation Diphenhydramine HCl (Benadryl) 25 mg IVPUSH Q6H PRN PRN Reason: Itching or Nausea Docusate Sodium (Colace) 100 mg PO BID [facility] Last Admin: 02/21/19 21:33 Dose: 100 mg Emollient Ointment (Lansinoh Hpa) 0 gm TOP ASDIRECTED PRN PRN Reason: Sore Nipples Lactated Ringer's (Ringers, Lactated) 1,000 mls @ 500 mls/hr IV BOLUS [facility] Last Admin: 02/21/19 07:26 Dose: 500 mls/hr Oxytocin/Sodium Chloride (Oxytocin 30 Unit/500 Ml-Ns) 30 unit in 500 mls @ 250 mls/hr IV TITRATE DEAN Lactated Ringer's (Ringers, Lactated) 1,000 mls @ 125 mls/hr IV ASDIRECTED [facility] Last Admin: 02/21/19 11:39 Dose: 125 mls/hr Ibuprofen (Motrin) 800 mg PO Q8H PRN PRN Reason: mild pain or fever Ketorolac Tromethamine (Toradol) 30 mg IVPUSH Q6H DEAN Stop: 02/22/19 09:01 Last Admin: 02/22/19 03:07 Dose: 30 mg Nalbuphine HCl (Nubain) 5 mg IVPUSH Q3H PRN PRN Reason: Pruritis Stop: 02/22/19 09:16 Naloxone HCl (Narcan) 0.1 mg IVPUSH ONETIME PRN PRN Reason: RR<6 WITH STIMUATION Stop: 02/22/19 09:16 Ondansetron HCl (Zofran) 4 mg IVPUSH Q4H PRN PRN Reason: Nausea/Vomiting Oxycodone/Acetaminophen (Percocet 325-5 Mg) 1 tab PO Q4H PRN PRN Reason: Pain (moderate 4-6) Oxycodone/Acetaminophen (Percocet 325-5 Mg) 2 tab PO Q4H PRN PRN Reason: Pain (moderate 4-6) Oxycodone/Acetaminophen (Percocet 325-5 Mg) 1 tab PO ONETIME PRN PRN Reason: Breakthrough Pain Sodium Chloride (Saline Flush) 10 ml FLUSH ASDIRECTED PRN PRN Reason: Keep Vein Open Sodium Chloride (Saline Flush) 2.5 ml FLUSH ASDIRECTED PRN PRN Reason: Keep Vein Open Sodium Chloride (Normal Saline) 10 ml IV ASDIRECTED PRN PRN Reason: IV Use Discontinued Medications Cefazolin Sodium/Dextrose (Ancef) Confirm Administered Dose 2 gm IV .STK-MED ONE Stop: 02/21/19 08:03 Citric Acid/Sodium Citrate (Bicitra Solution) 30 ml PO ONETIME ONE Stop: 02/20/19 10:42 Last Admin: 02/21/19 11:40 Dose: Not Given Ephedrine Sulfate (Ephedrine Sulfate) Confirm Administered Dose 50 mg .ROUTE .STK-MED ONE Stop: 02/21/19 07:19 Oxytocin/Sodium Chloride (Oxytocin 30 Unit/500 Ml-Ns) Confirm Administered Dose 30 unit in 500 mls @ as directed .ROUTE .STK-MED ONE Stop: 02/21/19 07:29 Ketorolac Tromethamine (Toradol) Confirm Administered Dose 30 mg .ROUTE .STK- MED ONE Stop: 02/21/19 07:20 Morphine Sulfate (Duramorph Pf) Confirm Administered Dose 10 mg .ROUTE .STK-MED ONE Stop: 02/21/19 07:19 Octyl Cyanoacrylate (Dermabond Advance) Confirm Administered Dose 1 applic .ROUTE .STK-MED ONE Stop: 02/21/19 07:31 Last Admin: 02/21/19 11:40 Dose: Not Given Ondansetron HCl (Zofran) Confirm Administered Dose 4 mg .ROUTE .STK-MED ONE Stop: 02/21/19 07:19 Oxytocin (Pitocin) Confirm Administered Dose 20 unit .ROUTE .STK-MED ONE Stop: 02/21/19 07:19 Phenylephrine HCl (Go-Synephrine) Confirm Administered Dose 10 mg .ROUTE .STK- MED ONE Stop: 02/21/19 07:19 Phenylephrine HCl (Phenylephrine In Ns 100 Mcg/Ml) Confirm Administered Dose 1 mg .ROUTE .STK-MED ONE Stop: 02/21/19 09:41 - Interaction Infant Disposition, : in Room with Family Interaction: Holding Infant Feeding: Attempted ; Nursed Fair/Poor Support Person: - Recovery Exam Fundal Tone: Firm Fundal Level: At Umbilicus Fundal Placement: Midline Lochia Amount: Scant Lochia Color: Rubra/Red Perineum Description: Intact, Minimal Bruising/Swelling Episiotomy/Laceration: None Bladder Status: Indwelling Catheter in Place Urinary Elimination: Indwelling Catheter - Exam General: Alert, Oriented HEENT: Pupils Equal Neck: Supple Lungs: Clear to Auscultation, Normal Respiratory Effort Cardiovascular: Regular Rate, Regular Rhythm GI/Abdominal Exam: Normal Bowel Sounds, Soft, Non-Tender, No Organomegaly, No Distention, No Abnormal Bruit, No Mass, Pelvis Stable Extremities: Normal Inspection, Normal Range of Motion, Non-Tender, No Pedal Edema, Normal Capillary Refill Skin: Warm, Dry, Intact Wound/Incisions: Healing Well Neurological: No New Focal Deficit Psy/Mental Status: Alert, Normal Affect, Normal Mood - Problem List Review Problem List Initiated/Reviewed/Updated: Yes - My Orders Last 24 Hours: My Active Orders 02/21/19 08:51 Patient Status [ADT] Routine Ambulate [RC] PER UNIT ROUTINE Communication Order [RC] PER UNIT ROUTINE Communication Order [RC] PER UNIT ROUTINE Communication Order [RC] Per Unit Routine May Shower [RC] ASDIRECTED RT Incentive Spirometry [RC] Q2HWA Acetaminophen/oxyCODONE [Percocet 325-5 MG] 1 tab PO Q4H PRN Acetaminophen/oxyCODONE [Percocet 325-5 MG] 2 tab PO Q4H PRN Bisacodyl [Dulcolax] 10 mg RECTAL ONETIME PRN Ibuprofen [Motrin] 800 mg PO Q8H PRN Lanolin [Lansinoh HPA] See Dose Instructions TOP ASDIRECTED PRN Ondansetron [Zofran] 4 mg IVPUSH Q4H PRN diphenhydrAMINE [Benadryl] 25 mg IVPUSH Q6H PRN Assess Lochia [WOMSER] Per Unit Routine Assess Uterine Involution [WOMSER] Per Unit Routine Breast Pump [WOMSER] Per Unit Routine Peripheral IV Discontinue [OM.PC] Routine Sequential Compression Device [OM.PC] Per Unit Routine 02/21/19 08:52 Antiembolic Devices [RC] PER UNIT ROUTINE 02/21/19 09:00 Docusate Sodium [Colace] 100 mg PO BID Ketorolac [Toradol] 30 mg IVPUSH Q6H Lactated Ringers [Ringers, Lactated] 1,000 ml IV ASDIRECTED - Assessment Assessment:: Status post section doing well the patient ambulatory breast-feeding catheter are removed and she voided she is progressing gas. Plan discharge in the morning - Plan Plan:: Admitted foe elective repeat C/section.
[2019-02-22] MEDS: Acetaminophen/oxyCODONE 325-5 MG Tab PO PRN ×2 (13:28→17:33)
--- NOTE | 2019-02-22 13:33 | PCM48HPAN ---
Post Anesthesia Note - EVALUATION WITHIN 48HRS OF ANESTHETIC Vital Signs in Normal Range: Yes Patient Participated in Evaluation: Yes Respiratory Function Stable: Yes Airway Patent: Yes Cardiovascular Function Stable: Yes Hydration Status Stable: Yes Pain Control Satisfactory: Yes Nausea and Vomiting Control Satisfactory: Yes Mental Status Recovered: Yes Resp Rate: 17
== END 2019-02-22 19:45 | disposition home or self-care (01) | DRG 788 ==
LOC: MW.OB 05:21
PROVIDERS: ADMIT Obstetrics & Gynecology; ATTEND Obstetrics & Gynecology
PROC: 10D00Z1 Extraction of Products of Conception, Low, Open Approach (ICD-10-PCS; principal; 2019-02-21)
DX: O34.211 Maternal care for low transverse scar from previous cesarean delivery (principal); Z3A.39 39 weeks gestation of pregnancy; Z37.0 Single live birth
CPT/HCPCS: 36415; 59025; 85014; 85018; 85027; 86850; 86900; 86901; A9270-GY; J0690; J1885; J2270; J2370; J2405; J2590; J7120

== ENCOUNTER 2020-07-12 22:34 | Emergency (ER) | payer OTHER ==
[2020-07-12] MEDS ORDERED: Sodium Chloride 0.9% 2.5 ML Syringe FLUSH PRN (23:17)
[2020-07-12] MEDS ORDERED: Sodium Chloride 0.9% 1,000 ML IV ONE (23:17)
[2020-07-12] MEDS ORDERED: Sodium Chloride 0.9% 10 ML Syringe FLUSH PRN (23:17)
[2020-07-12] MEDS ORDERED: Ondansetron 4 MG/2 ML SDV IVPUSH ONE (23:17)
--- NOTE | 2020-07-12 23:21 | EDM.PDOC ---
ED HPI GENERAL MEDICAL PROBLEM - General Chief Complaint: Flank Pain Stated Complaint: kidney pain Time Seen by Provider: 07/12/20 22:35 - History of Present Illness INITIAL COMMENTS - FREE TEXT/NARRATIVE: 25-year-old female presenting with 3 days of dysuria and increased urinary frequency associated with a constant non-waxing and waning right flank pain associated with generalized malaise and chills. Patient reports that she was diagnosed with a kidney infection when she was in [place]. She was taking an antibiotic for 6 days that she last took an antibiotic 2 weeks ago. She denies any allergies. She denies any vaginal bleeding or discharge she denies any anterior abdominal pain she reports nausea but denies vomiting. No clear exacerbating or alleviating factors radiation or other associated symptoms she denies cough, chest pain, or shortness of breath Right Flank Pain Score (Numeric/FACES): 7 - Related Data Allergies Allergy/AdvReac Type Severity Reaction Status Date / Time No Known Allergies Allergy Verified 07/12/20 22:59 Home Meds: Home Meds Cefpodoxime [Vantin] 200 mg PO BID 14 Days #28 tab 07/13/20 [Rx] Past Medical History - Past Health History Medical/Surgical History: Denies Medical/Surgical History Cardiovascular History: Reports: None Respiratory History: Reports: None Gastrointestinal History: Reports: GERD Genitourinary History: Reports: None 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: Musculoskeletal History: Reports: None Neurological History: Reports: None Psychiatric History: Reports: Depression Other Psychiatric History: post depression Endocrine/Metabolic History: Reports: None Hematologic History: Reports: None Immunologic History: Reports: None Oncologic (Cancer) History: Reports: None Dermatologic History: Reports: None - Infectious Disease History Infectious Disease History: Reports: Chicken Pox - Past Surgical History Head Surgeries/Procedures: Reports: None Cardiovascular Surgical History: Reports: None Respiratory Surgical History: Reports: None GI Surgical History: Reports: None Female Surgical History: Reports: Section Endocrine Surgical History: Reports: None Neurological Surgical History: Reports: None Musculoskeletal Surgical History: Reports: None Oncologic Surgical History: Reports: None Dermatological Surgical History: Reports: Plastic Surgical Reconstruction/Repair Social & Family History - Family History Family Medical History: Noncontributory - Tobacco Use Smoking Status *Q: Never Smoker - Caffeine Use Caffeine Use: Reports: None - Recreational Drug Use Recreational Drug Use: No ED ROS GENERAL - Review of Systems Review Of Systems: See Below Free Text/Narrative/Comment: General: Per HPI Skin: No rash. Eyes: No vision problems. ENT: No sore throat. Neck: No neck stiffness. Respiratory: No shortness of breath. Cardiac: No chest pain. Gastrointestinal: Per HPI Urinary: Per HPI Musculoskeletal: No myalgias/arthralgias. Neurologic: No headache. ED EXAM, GENERAL - Physical Exam Exam: See Below Free Text/Narrative:: General Appearance: No acute distress, appears comfortable Skin: No rash HEENT: Normocephalic/atraumatic, sclera anicteric, mucous membranes dry Neck: Normal range of motion Chest and Lungs: Bilateral breath sounds, clear to auscultation Cardiovascular: Regular rate and rhythm, no murmur Abdomen: Soft, right upper quadrant tenderness without palpable mass guarding or rebound Back: Normal Musculoskeletal: No edema or tenderness Neurologic: Awake, alert, no obvious deficits, moving all extremities Psychiatric: Appropriate, cooperative Course - Vital Signs Last Recorded V/S: Last Vital Signs Temp 99.3 F 07/12/20 22:41 Pulse 106 H 07/13/20 00:47 Resp 16 07/12/20 22:41 BP 99/60 07/13/20 00:47 Pulse Ox 97 07/13/20 00:47 - Orders/Labs/Meds Orders: Active Orders 24 hr Category Date Time Status Sodium Chloride 0.9% [Saline Flush] Med 07/12/20 23:17 Active 10 ml FLUSH ASDIRECTED PRN Sodium Chloride 0.9% [Saline Flush] Med 07/12/20 23:17 Active 2.5 ml FLUSH ASDIRECTED PRN Saline Lock Insert [OM.PC] Stat Oth 07/12/20 23:17 Ordered Medication Orders Sodium Chloride (Saline Flush) 10 ml FLUSH ASDIRECTED PRN PRN Reason: Keep Vein Open Sodium Chloride (Saline Flush) 2.5 ml FLUSH ASDIRECTED PRN PRN Reason: Keep Vein Open Labs: Laboratory Tests 07/12/20 07/12/20 07/12/20 Range/Units 22:45 22:45 23:30 WBC 10.01 (4.0-11.0) K/uL RBC 4.35 (4.30-5.90) M/uL Hgb 11.5 L (12.0-16.0) g/dL Hct 36.2 (36.0-46.0) % MCV 83.2 (80.0-98.0) fL MCH 26.4 L (27.0-32.0) pg MCHC 31.8 (31.0-37.0) g/dL RDW Std Deviation 44.1 (28.0-62.0) fl RDW Coeff of Lina 14 (11.0-15.0) % Plt Count 270 (150-400) K/uL MPV 10.60 (7.40-12.00) fL Neut % (Auto) 78.7 (48.0-80.0) % Lymph % (Auto) 12.6 L (16.0-40.0) % Cochran % (Auto) 8.1 (0.0-15.0) % Eos % (Auto) 0.5 (0.0-7.0) % Baso % (Auto) 0.1 (0.0-1.5) % Neut # (Auto) 7.9 H (1.4-5.7) K/uL Lymph # (Auto) 1.3 (0.6-2.4) K/uL Cochran # (Auto) 0.8 (0.0-0.8) K/uL Eos # (Auto) 0.1 (0.0-0.7) K/uL Baso # (Auto) 0.0 (0.0-0.1) K/uL Nucleated RBC % 0.0 /100WBC Nucleated RBCs # 0 K/uL Lactate (0.20-2.00) mmol/L Sodium (136-145) mmol/L Potassium (3.5-5.1) mmol/L Chloride (98-107) mmol/L Carbon Dioxide (21.0-32.0) mmol/L BUN (7.0-18.0) mg/dL Creatinine (0.6-1.0) mg/dL Est Cr Clr Drug Dosing mL/min Estimated GFR (MDRD) ml/min Glucose (74-106) mg/dL Calcium (8.5-10.1) mg/dL Total Bilirubin (0.2-1.0) mg/dL AST (15-37) IU/L ALT (14-63) IU/L Alkaline Phosphatase (46-116) U/L Total Protein (6.4-8.2) g/dL Albumin (3.4-5.0) g/dL Globulin (2.6-4.0) g/dL Albumin/Globulin Ratio (0.9-1.6) Lipase (73-393) U/L Urine Color YELLOW Urine Appearance SLT CLOUDY Urine pH 8.5 H (5.0-8.0) Ur Specific Chandler 1.015 (1.001-1.035) Urine Protein NEGATIVE (NEGATIVE) mg/dL Urine Glucose (UA) NEGATIVE (NEGATIVE) mg/dL Urine Ketones NEGATIVE (NEGATIVE) mg/dL Urine Occult Blood NEGATIVE (NEGATIVE) Urine Nitrite NEGATIVE (NEGATIVE) Urine Bilirubin NEGATIVE (NEGATIVE) Urine Urobilinogen 0.2 (<2.0) EU/dL Ur Leukocyte Esterase SMALL H (NEGATIVE) Urine RBC 0-2 (0-2/HPF) Urine WBC 12-15 (0-5/HPF) Ur Epithelial Cells FEW (NONE-FEW) Urine Bacteria FEW (NEGATIVE) Urine HCG, Qual NEGATIVE (NEGATIVE) 07/12/20 07/12/20 Range/Units 23:30 23:30 WBC (4.0-11.0) K/uL RBC (4.30-5.90) M/uL Hgb (12.0-16.0) g/dL Hct (36.0-46.0) % MCV (80.0-98.0) fL MCH (27.0-32.0) pg MCHC (31.0-37.0) g/dL RDW Std Deviation (28.0-62.0) fl RDW Coeff of Lina (11.0-15.0) % Plt Count (150-400) K/uL MPV (7.40-12.00) fL Neut % (Auto) (48.0-80.0) % Lymph % (Auto) (16.0-40.0) % Cochran % (Auto) (0.0-15.0) % Eos % (Auto) (0.0-7.0) % Baso % (Auto) (0.0-1.5) % Neut # (Auto) (1.4-5.7) K/uL Lymph # (Auto) (0.6-2.4) K/uL Cochran # (Auto) (0.0-0.8) K/uL Eos # (Auto) (0.0-0.7) K/uL Baso # (Auto) (0.0-0.1) K/uL Nucleated RBC % /100WBC Nucleated RBCs # K/uL Lactate 0.7 (0.20-2.00) mmol/L Sodium 139 (136-145) mmol/L Potassium 3.6 (3.5-5.1) mmol/L Chloride 104 (98-107) mmol/L Carbon Dioxide 25.4 (21.0-32.0) mmol/L BUN 11 (7.0-18.0) mg/dL Creatinine 0.9 (0.6-1.0) mg/dL Est Cr Clr Drug Dosing 84.49 mL/min Estimated GFR (MDRD) > 60.0 ml/min Glucose 98 (74-106) mg/dL Calcium 8.1 L (8.5-10.1) mg/dL Total Bilirubin 0.2 (0.2-1.0) mg/dL AST 15 (15-37) IU/L ALT 21 (14-63) IU/L Alkaline Phosphatase 92 (46-116) U/L Total Protein 6.8 (6.4-8.2) g/dL Albumin 3.6 (3.4-5.0) g/dL Globulin 3.2 (2.6-4.0) g/dL Albumin/Globulin Ratio 1.1 (0.9-1.6) Lipase 67 L (73-393) U/L Urine Color Urine Appearance Urine pH (5.0-8.0) Ur Specific Chandler (1.001-1.035) Urine Protein (NEGATIVE) mg/dL Urine Glucose (UA) (NEGATIVE) mg/dL Urine Ketones (NEGATIVE) mg/dL Urine Occult Blood (NEGATIVE) Urine Nitrite (NEGATIVE) Urine Bilirubin (NEGATIVE) Urine Urobilinogen (<2.0) EU/dL Ur Leukocyte Esterase (NEGATIVE) Urine RBC (0-2/HPF) Urine WBC (0-5/HPF) Ur Epithelial Cells (NONE-FEW) Urine Bacteria (NEGATIVE) Urine HCG, Qual (NEGATIVE) Meds: Medications Generic Name Dose Route Start Last Admin Trade Name Freq PRN Reason Stop Dose Admin Sodium Chloride 10 ml 07/12/20 23:17 Saline Flush FLUSH ASDIRECTED PRN Keep Vein Open Sodium Chloride 2.5 ml 07/12/20 23:17 Saline Flush FLUSH ASDIRECTED PRN Keep Vein Open Discontinued Medications Generic Name Dose Route Start Last Admin Trade Name Carl PRN Reason Stop Dose Admin Sodium Chloride 1,000 mls @ 999 mls/hr 07/12/20 23:17 07/12/20 23:35 Normal Saline IV 07/13/20 00:17 999 mls/hr .Bolus ONE Administration Ceftriaxone Sodium/Dextrose 1 50 mls @ 100 mls/hr 07/13/20 02:18 07/13/20 02:29 gm/ Premix IV 07/13/20 02:47 100 mls/hr ONETIME ONE Administration Iopamidol 80 ml 07/13/20 01:59 07/13/20 02:00 Isovue Multipack-370 (76%) IVPUSH 07/13/20 02:00 80 ml ONETIME STA Administration Ketorolac Tromethamine 15 mg 07/13/20 02:16 07/13/20 02:30 Toradol IVPUSH 07/13/20 02:17 15 mg ONETIME ONE Administration Morphine Sulfate 4 mg 07/12/20 23:35 07/12/20 23:35 Morphine IVPUSH 07/12/20 23:36 4 mg ONETIME ONE Administration Morphine Sulfate Confirm 07/12/20 23:33 07/12/20 23:46 Morphine Administered 07/12/20 23:34 Not Given Dose 4 mg .ROUTE .STK-MED ONE Ondansetron HCl 4 mg 07/12/20 23:17 07/12/20 23:35 Zofran IVPUSH 07/12/20 23:18 4 mg ONETIME ONE Administration Departure - Departure Time of Disposition: 02:49 Disposition: Home, Self-Care 01 Condition: Good Clinical Impression: Pyelonephritis - Discharge Information *PRESCRIPTION DRUG MONITORING PROGRAM REVIEWED*: Not Applicable *COPY OF PRESCRIPTION DRUG MONITORING REPORT IN PATIENT JOE: Not Applicable Prescriptions: Cefpodoxime [Vantin] 200 mg PO BID 14 Days #28 tab Instructions: Pyelonephritis, Adult, [id number] Referrals: Palak Calixto [Ordering Only Provider] - 3 Days Forms: ED Department Discharge Additional Instructions: Your labs and imaging indicate that you have a kidney infection. It is very im portant that you take the entire course of antibiotics even if you feel better within the next few days. It is also important that if you develop a fever or start to feel worse that you come back to the emergency department. Please follow-up with the primary care clinic later this week to ensure that you are getting better. The following information is given to patients seen in the emergency department who are being discharged to home. This information is to outline your options for follow-up care. We provide all patients seen in our emergency department with a follow-up referral. The need for follow-up, as well as the timing and circumstances, are variable depending upon the specifics of your emergency department visit. If you don't have a primary care physician on staff, we will provide you with a referral. We always advise you to contact your personal physician following an emergency department visit to inform them of the circumstance of the visit and for follow-up with them and/or the need for any referrals to a consulting specialist. The emergency department will also refer you to a specialist when appropriate. This referral assures that you have the opportunity for follow-up care with a specialist. All of these measure are taken in an effort to provide you with optimal care, which includes your follow-up. Under all circumstances we always encourage you to contact your private physician who remains a resource for coordinating your care. When calling for follow-up care, please make the office aware that this follow-up is from your recent emergency room visit. If for any reason you are refused follow-up, please contact the [facility] Emergency Department at and asked to speak to the emergency department charge nurse. Sepsis Event Note (ED) - Evaluation Sepsis Screening Result: No Definite Risk - Focused Exam Vital Signs: Vital Signs Temp Pulse Resp BP Pulse Ox 07/13/20 00:47 106 H 99/60 97 07/13/20 00:17 106 H 108/67 98 07/12/20 23:17 108 H 117/63 98 07/12/20 22:41 99.3 F 112 H 16 114/67 98 - My Orders Last 24 Hours: My Active Orders 07/12/20 23:17 Sodium Chloride 0.9% [Saline Flush] 10 ml FLUSH ASDIRECTED PRN Sodium Chloride 0.9% [Saline Flush] 2.5 ml FLUSH ASDIRECTED PRN Saline Lock Insert [OM.PC] Stat - Assessment/Plan Last 24 Hours: My Active Orders 07/12/20 23:17 Sodium Chloride 0.9% [Saline Flush] 10 ml FLUSH ASDIRECTED PRN Sodium Chloride 0.9% [Saline Flush] 2.5 ml FLUSH ASDIRECTED PRN Saline Lock Insert [OM.PC] Stat Assessment:: 25-year-old female presenting with signs and symptoms that do seem most consistent with pyelonephritis renal colic considered but the constant aching nature of the pain does not suggest ureteral colic. Patient is not her urinalysis has some bacteria and white blood cells but is not floridly infected. It could be consistent with partially treated urinary tract infection. That said given this finding and the right upper quadrant tenderness must also consider biliary pathology CBC CMP lipase right upper quadrant ultrasound ordered right inferior lung pathology considered and chest x-ray ordered given patient's mild tachycardia IV fluid is been ordered as well as screening lactate. Final treatment plan and disposition pending results of above. Labs are notable for normal lactic acid normal CBC normal chemistry urinalysis with some signs of infection as noted above chest x-ray and right upper quadrant ultrasound are normal. CT demonstrates some signs suggestive of pyelonephritis which I believe to be the cause of her symptoms. Given her young age her lack of other medical problems and the lack of any antibiotics within the last few weeks with a normal white count the lack of fever and the fact that she now feels much better after IV fluid and some pain medication I think a trial of outpatient treatment is reasonable patient was given a dose of ceftriaxone IV here and we will start her on Cefpodoxime twice daily for 14 days. This was chosen over Keflex due to the less frequent dosing which should aid in compliance. Strict return precautions were discussed and understood.
[2020-07-12] MEDS ORDERED: Morphine 4 MG/ML Syringe ONE (23:33)
[2020-07-12] MEDS ORDERED: Morphine 4 MG/ML Syringe IVPUSH ONE (23:35)
[2020-07-12 23:59] LABS: BLOOD UREA NITROGEN,BUN 11 mg/dL (7.0-18.0); CARBON DIOXIDE,CO2 25.4 mmol/L (21.0-32.0); CHLORIDE,CL 104 mmol/L (98-107); GLUCOSE RANDOM 98 mg/dL (74-106); LIPASE 67 U/L (73-393); POTASSIUM,K 3.6 mmol/L (3.5-5.1); SODIUM,NA 139 mmol/L (136-145)
--- NOTE | 2020-07-13 00:09 | CR ---
INDICATION: Right flank pain TECHNIQUE: Chest radiograph 2 views COMPARISON: 12/06/2017 FINDINGS: Mediastinum: The mediastinum is normal in appearance. The heart silhouette is normal in size and morphology. Lung: Both lungs are unremarkable in appearance. No sign of pleural effusion seen. No pneumothorax is identified. Bone and Soft tissue: Unremarkable for age. Bilateral breast implants with small metallic clips are noted. IMPRESSION: 1. No acute cardiopulmonary disease is seen. Dictated by: Kareem Vidal MD @ 07/13/2020 00:07:49 (Electronically Signed)
--- NOTE | 2020-07-13 00:29 | US ---
INDICATION: Right upper quadrant tenderness TECHNIQUE: Ultrasound abdomen limited. Sonographic images of the right upper quadrant were obtained using puente-scale and color Doppler images. COMPARISON: None FINDINGS: Liver: The liver parenchyma is normal in echotexture. Gallbladder: The neck of the gallbladder is not well demonstrated. The gallbladder wall is normal in appearance. No pericholecystic fluid is present. No sonographic [place] sign is present. Common bile duct: 3 mm. No intrahepatic biliary ductal dilatation seen. Pancreas: The visualized portions of the pancreatic head and body are normal in appearance. Right Kidney: 12 cm. No hydronephrosis or ureterectasis is seen. Vascular: The visualized abdominal aorta and IVC are unremarkable. IMPRESSION: 1. The right upper quadrant is unremarkable in appearance. Dictated by Kareem Vidal MD @ 07/13/2020 12:29:20 AM Dictated by: Kareem Vidal MD @ 07/13/2020 00:29:28 (Electronically Signed)
[2020-07-13] MEDS ORDERED: Iopamidol 755 MG/ML 200 ML Multipack Bottle IVPUSH STA (01:59)
--- NOTE | 2020-07-13 02:14 | CT ---
INDICATION: Right flank, right upper quadrant pain TECHNIQUE: CT Abdomen and pelvis with i.v. contrast. Coronal and sagittal reformats were obtained. CONTRAST: 80 mL Isovue 370 COMPARISON: None FINDINGS: Lower chest: Unremarkable. Bilateral breast implants are present and unremarkable in appearancebut only partially visualized. Liver: Unremarkable. Spleen: Unremarkable. Pancreas: Unremarkable. Gallbladder: Unremarkable. Kidney: There is a 1.8 cm region of ill-defined decreased enhancement in the posterior mid zone of the right kidney. Prominence of the right mid ureters present which may be due to peristalsis. Adrenal: Unremarkable. Bowel: Unremarkable. The appendix is normal in appearance and size. Vascular: Unremarkable. Lymph: Unremarkable. Peritoneum: Unremarkable. No pneumoperitoneum is seen. Trace amount of ascites is present and is likely physiologic in origin. Pelvis: Moderate bladder distention is noted. Soft tissue: Unremarkable. Bone: Unremarkable for age. IMPRESSION: 1. There is a 1.8 cm region of ill-defined decreased enhancement in the posterior mid zone of the right kidney. Correlation with urinalysis and history is recommended to exclude pyelonephritis. If these are noncontributory, assessment with outpatient renal MRI is recommended to exclude a renal mass. Dictated by Kareem Vidal MD @ 07/13/2020 2:12:12 AM Please note that all CT scans at this facility use dose modulation, iterative reconstruction, and/or weight-based dosing when appropriate to reduce radiation dose to as low as reasonably achievable. Dictated by: Kareem Vidal MD @ 07/13/2020 02:12:22 (Electronically Signed)
[2020-07-13] MEDS ORDERED: Ketorolac 30 MG/ML SDV IVPUSH ONE (02:16)
[2020-07-13] MEDS ORDERED: cefTRIAXone 1 GM in Premix Bag 1 BAG IV ONE (02:18)
== END 2020-07-13 03:15 | disposition home or self-care (01) ==
LOC: MW.ED 22:34
DX: N12 Tubulo-interstitial nephritis, not specified as acute or chronic (principal)
CPT/HCPCS: 36415; 71046; 74177; 76705; 80053; 81001; 81025; 83605; 83690; 85025; 96361; 96365; 96375; 99284; J0696; J1885; J2270; J2405; J7030; Q9967; 99283

== ENCOUNTER 2022-01-22 08:27 | Emergency (ER) | payer SELFPAY ==
[2022-01-22] MEDS ORDERED: Ibuprofen 600 MG Tab PO ONE (08:44)
== END 2022-01-22 08:59 | disposition home or self-care (01) ==
LOC: MW.ED 08:27
DX: N39.0 Urinary tract infection, site not specified (principal); N12 Tubulo-interstitial nephritis, not specified as acute or chronic
CPT/HCPCS: 81001; 81025; 99284; A9270; 99283